=== PATIENT | male | born 1970 | race Caucasian/White ===

== ENCOUNTER 2020-03-14 11:53 | Inpatient (IN) | payer OTHER ==
[2020-03-14] MEDS ORDERED: Sodium Chloride 0.9% 1000 ML 1,000 ML IV SCH (12:45)
[2020-03-14 14:11] LABS: Absolute Neutrophil Ct (ANC) 1.87 (1.4-6.9); BASOPHIL % 0.3 % (0.0-0.4); Basophil (Absolute #) 0.01 (0-0.4); Eosinophil % 1.7 % (0.00-5.0); Eosinophil (Absolute #) 0.05 (0-0.5); Hemoglobin 11.3 gm/dl (12.5-18.0); Lymphocyte (Absolute #) 0.71 (1.0-4.6); Lymphocytes % 23.4 % (24.0-44.0); Mean Corpuscular Hemoglobin 36.8 pg (26-32); Mean Corpuscular Hgb Concent. 36.5 g/dl (32-36); Mean Platelet Volume 10.8 fl (7.5-11.0); Monocyte (Absolute #) 0.39 (0.0-1.3); Monocytes % 12.9 % (0.0-12.0); Neutrophil % 61.7 % (36.0-66.0); Platelet Count 130 K/mm3 (150-450); Red Blood Count 3.07 M/mm3 (4.1-5.6); Red Cell Distribution Width 12.2 % (11.5-14.0)
[2020-03-14 14:13] LABS: ALBUMIN 5.3 g/dL (3.5-5.0); ANION GAP 20.6 MEQ/L (5-15); BILIRUBIN,TOTAL 0.9 mg/dL (0.2-1.3); Calcium 10.5 mg/dL (8.4-10.2); Creatinine 1 1.9 mg/dL (0.66-1.25); Total Protein 8.9 g/dL (6.3-8.2)
[2020-03-14 14:15] LABS: Potassium 5.5 mmol/L (3.5-5.1)
[2020-03-14] MEDS ORDERED: D50W 50 ml Abboject IV ONE ×2 (14:15→14:22)
--- NOTE | 2020-03-14 14:44 | ERPHSYRPT ---
- History of Present Illness Time Seen by Provider: 03/14/20 12:12 Source: patient Exam Limitations: no limitations Patient Subjective Stated Complaint: Pt states "I was called by Dr. Agarwal and told to come to the ER because my sodium was extremely low." Triage Nursing Assessment: Pt presented alert and oriented X 3, skin pwd. Pt ambulates with an upright steady gait, able to speak in clear full sentences. Pt in no apparent respiratory distress. Physician History: 49 years old male with history of diabetes mellitus, chronic kidney disease with sent in ER by primary care after his labs done yesterday at [facility] showed hyponatremia. Patient report having generalized weakness and fatigue going on for quite some time but denies any focal numbness tingling or weakness. Denies any confusion. Denies any chest pain palpitations or shortness of breath. Denies any diuretic intake are excessive water intake. Denies polyuria or polydipsia. Patient was also hypoglycemic on the work-up. Allergies/Adverse Reactions: No Known Drug Allergies Allergy (Verified 03/14/20 16:16) Home Medications: Losartan Potassium 50 mg PO DAILY 03/14/20 [History] Metformin HCl [Metformin ER Gastric] 1,000 mg PO BID 03/14/20 [History] Simvastatin 20 mg PO DAILY 03/14/20 [History] glipiZIDE [Glipizide] 5 mg PO DAILY 03/14/20 [History] Hx Tetanus, Diphtheria Vaccination/Date Given: No Hx Influenza Vaccination/Date Given: No Hx Pneumococcal Vaccination/Date Given: No Immunizations Up to Date: Yes Travel Risk - International Travel Have you traveled outside of the country in past 3 weeks: No - Coronavirus Screening Are you exhibiting any of the following symptoms?: No Close contact with a COVID-19 positive Pt in past 14-21 Days: No - Review of Systems Constitutional: Fatigue, Weakness Eyes: No Symptoms Ears, Nose, & Throat: No Symptoms Respiratory: No Symptoms Cardiac: No Symptoms Abdominal/Gastrointestinal: No Symptoms Genitourinary Symptoms: No Symptoms Musculoskeletal: Myalgias Skin: No Symptoms Neurological: No Symptoms Psychological: No Symptoms Endocrine: No Symptoms Hematologic/Lymphatic: No Symptoms Immunological/Allergic: No Symptoms - Past Medical History Pertinent Past Medical History: Yes Neurological History: No Pertinent History ENT History: No Pertinent History Cardiac History: High Cholesterol, Hypertension Respiratory History: No Pertinent History Endocrine Medical History: Diabetes Type II Musculoskeletal History: No Pertinent History GI Medical History: No Pertinent History History: Renal Disease Psycho-Social History: No Pertinent History Male Reproductive Disorders: No Pertinent History - Past Surgical History Past Surgical History: No - Social History Smoking Status: Never smoker Exposure to second hand smoke: Yes Drug Use: none Patient Lives Alone: No - Nursing Vital Signs Nursing Vital Signs: Initial Vital Signs Temperature 98.2 F 03/14/20 11:59 Pulse Rate 107 H 03/14/20 11:59 Respiratory Rate 20 03/14/20 11:59 Blood Pressure 145/95 03/14/20 11:59 O2 Sat by Pulse Oximetry 100 03/14/20 11:59 Pain Scale Pain Intensity 0 - Physical Exam General Appearance: no apparent distress Eye Exam: PERRL/EOMI, eyes nml inspection Ears, Nose, Throat Exam: normal ENT inspection, TMs normal, pharynx normal Neck Exam: normal inspection, non-tender, supple, full range of motion Respiratory Exam: normal breath sounds, lungs clear Cardiovascular Exam: regular rate/rhythm, normal heart sounds Gastrointestinal/Abdomen Exam: soft, normal bowel sounds, No tenderness Back Exam: normal inspection, normal range of motion Extremity Exam: normal inspection, normal range of motion Neurologic Exam: alert, oriented x 3, cooperative, vice chancellor II-XII nml as tested, normal mood/affect, nml cerebellar function, nml station & gait, sensation nml Skin Exam: normal color SpO2 Interpretation: normal SpO2: 100 O2 Delivery: Room Air - Course Nursing assessment & vital signs reviewed: Yes EKG Interpreted by Me: RATE (80), Sinus Rhythm, NORMAL AXIS, NORMAL INTERVALS (Nonspecific early repolarization) Ordered Tests: Active Orders 24 hr Category Date Time Status Bedrest with BRP/BSC ROUTINE Activity 03/14/20 16:02 Active Up With Assistance ROUTINE Activity 03/14/20 16:02 Active Accucheck Q2H Care 03/14/20 16:02 Active Admit as Inpatient ROUTINE Care 03/14/20 16:02 Active Code Status Order ROUTINE Care 03/14/20 16:02 Active EKG-ER Only STAT Care 03/14/20 12:34 Completed Fall Protocol ROUTINE Care 03/14/20 16:02 Active IV Care Q6H Care 03/14/20 16:02 Active IV Insertion STAT Care 03/14/20 12:34 Completed Neuro Checks Q2H Care 03/14/20 16:02 Active Robson Zak, Apply ROUTINE Care 03/14/20 16:02 Active Weight,Daily 0600 Care 03/14/20 16:02 Active Heart-Healthy Diet Diet 03/14/20 Dinner Active CHEST 1 VIEW (PORTABLE) Stat Exams 03/14/20 14:53 Completed CBC W DIFF AM.LAB Lab 03/15/20 04:00 Ordered CBC W DIFF Stat Lab 03/14/20 13:09 Completed CMP AM.LAB Lab 03/15/20 04:00 Ordered CMP Stat Lab 03/14/20 13:09 Completed CULTURE,URINE Stat Lab 03/14/20 15:10 Received TROPONIN Q3H Lab 03/14/20 15:10 Completed TROPONIN Q3H Lab 03/14/20 18:00 Ordered TROPONIN Q3H Lab 03/14/20 21:00 Ordered UA W/RFX UR CULTURE Stat Lab 03/14/20 15:10 Completed Transfer Order Routine Transfer 03/14/20 Completed Medication Summary Generic Name Dose Route Start Last Admin Trade Name Freq PRN Reason Stop Dose Admin Acetaminophen 650 mg 03/14/20 16:02 Tylenol 325 Mg PO 04/13/20 16:01 Q4H PRN PRN PAIN AND/OR FEVER Famotidine 20 mg 03/14/20 22:00 Pepcid 20 Mg Vial IV 04/13/20 21:59 Q12HT FELIPA Sodium Chloride 1,000 mls @ 200 mls/hr 03/14/20 16:02 Sodium Chloride 0.9% 1000 Ml IV 04/13/20 16:01 .Q5H FELIPA Discontinued Medications Generic Name Dose Route Start Last Admin Trade Name Freq PRN Reason Stop Dose Admin Dextrose Confirm 03/14/20 14:15 D50w 50 Ml Abboject Administered 03/14/20 14:16 Dose 50 ml IV .STK-MED ONE Dextrose 50 ml 03/14/20 14:22 03/14/20 14:23 D50w 50 Ml Abboject IV 03/14/20 14:23 50 ml STAT ONE Administration Sodium Chloride 1,000 mls @ 125 mls/hr 03/14/20 12:45 03/14/20 15:36 Sodium Chloride 0.9% 1000 Ml IV 04/13/20 12:44 125 mls/hr .Q8H FELIPA Administration Sodium Chloride 500 mls @ 30 mls/hr 03/14/20 12:45 Sodium Chloride 3% Hypertonic IV 04/13/20 12:44 .[id number] FELIPA Sodium Chloride Confirm 03/14/20 15:18 Sodium Chloride 0.9% 1000 Ml Administered 03/14/20 15:19 Dose 1,000 mls @ ud .ROUTE .STK-MED ONE Sodium Chloride 500 mls @ 30 mls/hr 03/14/20 15:30 03/14/20 15:36 Sodium Chloride 3% Hypertonic IV 04/13/20 15:29 30 mls/hr .[id number] FELIPA Administration Lab/Rad Data: Laboratory Result Diagrams 03/14/20 13:09 03/14/20 13:09 Laboratory Results 03/14/20 03/14/20 Range/Units 13:09 13:09 WBC 3.0 L (4.0-10.5) K/mm3 RBC 3.07 L (4.1-5.6) M/mm3 Hgb 11.3 L (12.5-18.0) gm/dl Hct 31.0 L (42-50) % MCV 101.0 H (78-100) fl MCH 36.8 H (26-32) pg MCHC 36.5 H (32-36) g/dl RDW 12.2 (11.5-14.0) % Plt Count 130 L (150-450) K/mm3 MPV 10.8 (7.5-11.0) fl Gran % 61.7 (36.0-66.0) % Eos # (Auto) 0.05 (0-0.5) Absolute Lymphs (auto) 0.71 L (1.0-4.6) Absolute Monos (auto) 0.39 (0.0-1.3) Lymphocytes % 23.4 L (24.0-44.0) % Monocytes % 12.9 H (0.0-12.0) % Eosinophils % 1.7 (0.00-5.0) % Basophils % 0.3 (0.0-0.4) % Absolute Granulocytes 1.87 (1.4-6.9) Basophils # 0.01 (0-0.4) Sodium 122 L (137-145) mmol/L Potassium 5.5 H (3.5-5.1) mmol/L Chloride 87 L (98-107) mmol/L Carbon Dioxide 20 L (22-30) mmol/L Anion Gap 20.6 H (5-15) MEQ/L BUN 22 H (9-20) mg/dL Creatinine 1.90 H (0.66-1.25) mg/dL Estimated GFR 40.1 ML/MIN Glucose 49 L* (74-106) mg/dL Calcium 10.5 H (8.4-10.2) mg/dL Total Bilirubin 0.90 (0.2-1.3) mg/dL AST 48 (17-59) U/L ALT 28 (0-50) U/L Alkaline Phosphatase 102 (38-126) U/L Serum Total Protein 8.9 H (6.3-8.2) g/dL Albumin 5.3 H (3.5-5.0) g/dL - Progress Progress: re-examined Progress Note: 49 years old is evaluated for hyponatremia on the work-up done yesterday. I have obtained repeat labs which showed hyponatremia of 122 and potassium of 5.5. He is given 30 mL of 3% hypertonic saline and started on normal saline. His kidney functions are improving mildly when compared from one done yesterday. Chest x-ray negative for any acute finding. Also had hypoglycemia with glucose of 49 and given a ampule of D50. I believe this is secondary to kidney injury with decreased excretion of oral hypoglycemics. We will keep an eye on it. EKG did not show any acute ischemic changes. I have discussed with Dr. Haywood, recommended starting on normal saline at 200/h. Did not recommend using Kayexalate as fluid will take care of mildly elevated potassium. Patient is being admitted. Discussed with : Gonzalez Will see patient in: hospital (full admit) Counseled pt/family regarding: lab results, diagnosis, rad results - Departure Departure Disposition: In-patient Admission Clinical Impression: Hyponatremia, Hyperkalemia, Generalized weakness, Hypoglycemia CKD (chronic kidney disease) Qualifiers: Chronic kidney disease stage: unspecified stage Qualified Code(s): N18.9 - Chronic kidney disease, unspecified Condition: Stable Critical Care Time: Yes Critical Care Time(excluding separately billable procedures): Critical 30-74 mins
--- NOTE | 2020-03-14 15:17 | XRAY ---
Exam: AP upright portable chest film from 03/14/2020. Comparison: None. Indication: 49-year-old male with generalized weakness. Findings: The heart size and contour are normal. The aidee and mediastinal structures appear unremarkable. I see no evidence of abnormal mediastinal or perihilar lymphadenopathy The lungs are adequately inflated. No air space infiltrates, vascular congestion, pneumothorax, or pleural effusion is seen. No acute osseous process is seen. Prominent costochondral calcification is seen at the anterior margin of both first ribs. Impression: 1. No air space infiltrates or other acute cardiopulmonary disease is seen.
[2020-03-14] MEDS ORDERED: Sodium Chloride 0.9% 1000 ML 1,000 ML ONE (15:18)
[2020-03-14 15:24] LABS: Appearance CLOUDY (CLEAR); Bacteria PACKED /HPF (NEGATIVE); Bilirubin NEGATIVE (NEGATIVE); Blood SMALL Ery/ul (0-5); Glucose NEGATIVE (NEGATIVE); Ketones NEGATIVE (NEGATIVE); Leukocyte Esterase LARGE (NEGATIVE); Nitrite NEGATIVE (NEGATIVE); Protein,Urine Dip NEGATIVE (Negative); RBC NONE SEEN /HPF (0-2); Specific Gravity 1.003 (1.005-1.025); Urobilinogen NEGATIVE mg/dL (0-1); WBC >100 /HPF (0-5)
[2020-03-14] MEDS ORDERED: TYLENOL 325 MG PO PRN (16:02)
[2020-03-14] MEDS: Pepcid 20 MG VIAL IV SCH (21:18)
[2020-03-14] MEDS: Sodium Chloride 0.9% 1000 ML 1,000 ML IV SCH ×2 (21:21→21:22)
[2020-03-14] MEDS ORDERED: Glucophage XR 500 MG PO SCH (22:00)
[2020-03-14] MEDS ORDERED: METFORMIN HCL 1000 MG PO SCH (22:00)
[2020-03-15] MEDS: Sodium Chloride 0.9% 1000 ML 1,000 ML IV SCH ×4 (01:56→17:27)
[2020-03-15 05:06] LABS: Absolute Neutrophil Ct (ANC) 1.98 (1.4-6.9); BASOPHIL % 0.3 % (0.0-0.4); Basophil (Absolute #) 0.01 (0-0.4); Eosinophil (Absolute #) 0.07 (0-0.5); Hematocrit 29.1 % (42-50); Hemoglobin 10.5 gm/dl (12.5-18.0); Lymphocyte (Absolute #) 1.17 (1.0-4.6); Lymphocytes % 33.1 % (24.0-44.0); Mean Cell Volume 102.1 fl (78-100); Mean Corpuscular Hemoglobin 36.8 pg (26-32); Mean Corpuscular Hgb Concent. 36.1 g/dl (32-36); Mean Platelet Volume 10.4 fl (7.5-11.0); Monocytes % 8.5 % (0.0-12.0); Neutrophil % 56.1 % (36.0-66.0); Platelet Count 135 K/mm3 (150-450); Red Blood Count 2.85 M/mm3 (4.1-5.6); Red Cell Distribution Width 12.2 % (11.5-14.0); White Blood Count 3.5 K/mm3 (4.0-10.5)
[2020-03-15 05:20] LABS: ALBUMIN 4.5 g/dL (3.5-5.0); BILIRUBIN,TOTAL 0.8 mg/dL (0.2-1.3); Calcium 9.7 mg/dL (8.4-10.2); Creatinine 1 1.7 mg/dL (0.66-1.25); Potassium 5.5 mmol/L (3.5-5.1); Total Protein 7.6 g/dL (6.3-8.2)
--- NOTE | 2020-03-15 09:33 | PCM.HP ---
History of Present Illness - Chief Complaint Chief Complaint: hyponatremia Date: 03/15/20 History of Present Illness: is a 49 year old male. Presented to Er yesterday afternoon after being called by his urologist and told to go to ER because of severely low sodium level. Pt. notes feeling fine and had / has no complaints. Pt. notes he drinks a lot of water. - Review of Systems Constitutional: No Fever, No Chills Eyes: No Symptoms Ears, Nose, & Throat: No Symptoms Respiratory: No Cough, No Short Of Breath Cardiac: No Chest Pain, No Edema, No Syncope Abdominal/Gastrointestinal: No Abdominal Pain, No Nausea, No Vomiting, No Diarrhea Genitourinary Symptoms: No Dysuria Musculoskeletal: No Back Pain, No Neck Pain Skin: No Rash Neurological: No Dizziness, No Focal Weakness, No Sensory Changes Psychological: No Symptoms Endocrine: No Symptoms Hematologic/Lymphatic: No Symptoms Immunological/Allergic: No Symptoms Medications & Allergies Home Medications: Home Medication List Losartan Potassium 50 mg PO DAILY 03/14/20 [History Confirmed 03/14/20] Metformin HCl [Metformin ER Gastric] 1,000 mg PO BID 03/14/20 [History Confirmed 03/14/20] Simvastatin 20 mg PO DAILY 03/14/20 [History Confirmed 03/14/20] glipiZIDE [Glipizide] 5 mg PO DAILY 03/14/20 [History Confirmed 03/14/20] Allergies/Adverse Reactions: Allergies Allergy/AdvReac Type Severity Reaction Status Date / Time No Known Drug Allergies Allergy Verified 03/14/20 16:16 - Past Medical History Past Medical History: Yes Neurological History: No Pertinent History ENT History: No Pertinent History Cardiac History: High Cholesterol, Hypertension Respiratory History: No Pertinent History Endocrine Medical History: Diabetes Type II Musculoskelatal History: No Pertinent History GI Medical History: No Pertinent History History: Renal Disease Pyscho-Social History: No Pertinent History Male Reproductive Disorders: No Pertinent History - Past Surgical History Past Surgical History: No Neuro Surgical History: No Pertinent History Cardiac History: No Pertinent History Respiratory Surgery: No Pertinent History GI Surgical History: No Pertinent History Genitourinary Surgical Hx: No Pertinent History Musculskeletal Surgical Hx: No Pertinent History Male Surgical History: No Pertinent History Other Surgical History: colonoscopy 1 yr ago - Social History Smoking Status: Never smoker Exposure to second hand smoke: No Alcohol: None Drug Use: none - Physical Exam Vital Signs: Vital Signs - 24 hr Temp Pulse Resp BP Pulse Ox 03/15/20 07:32 97.7 F 88 16 138/88 97 03/15/20 04:00 97.7 F 84 16 145/73 98 03/15/20 00:00 98.1 F 88 18 145/93 99 03/14/20 20:00 98.0 F 89 18 144/85 99 03/14/20 16:46 97.8 F 102 H 18 126/68 100 03/14/20 16:42 100 03/14/20 14:54 96 H 18 142/82 96 03/14/20 13:54 100 H 18 136/82 98 03/14/20 11:59 98.2 F 107 H 20 145/95 100 General Appearance: no apparent distress Neurologic Exam: alert, oriented x 3, cooperative Eye Exam: PERRL/EOMI, eyes nml inspection Ears, Nose, Throat Exam: normal ENT inspection, TMs normal, moist mucous membranes Neck Exam: normal inspection, non-tender, supple, full range of motion, No meningismus Respiratory Exam: normal breath sounds, lungs clear, airway intact, No chest tenderness, No respiratory distress Cardiovascular Exam: regular rate/rhythm, normal heart sounds, normal peripheral pulses, No murmur Gastrointestinal/Abdomen Exam: soft, normal bowel sounds, tenderness, No distention, No mass, No guarding Rectal Exam: deferred Back Exam: normal inspection Extremity Exam: normal inspection Skin Exam: normal color, warm, dry, No rash Results - Labs Lab/Micro Results: Accuchecks Date 03/15/20 Date 03/15/20 Date 03/15/2003/15/20 Date 03/14/20 Date 03/14/20 Date 03/14/20 Date 03/14/20 Time 06:48 Time 05:00 Time 03:03 Time 01:00 Time 23:00 Time 21:00 Time 19:00 Time 17:00 Accucheck Value: 100 Accucheck Value: 111 Accucheck Value: 95 Accucheck Value: 101 Accucheck Value: 108 Accucheck Value: 118 Accucheck Value: 99 Lab Results-Last 24 Hours 03/14/20 03/14/20 03/14/20 Range/Units 13:09 13:09 15:10 WBC 3.0 L (4.0-10.5) K/mm3 RBC 3.07 L (4.1-5.6) M/mm3 Hgb 11.3 L (12.5-18.0) gm/dl Hct 31.0 L (42-50) % MCV 101.0 H (78-100) fl MCH 36.8 H (26-32) pg MCHC 36.5 H (32-36) g/dl RDW 12.2 (11.5-14.0) % Plt Count 130 L (150-450) K/mm3 MPV 10.8 (7.5-11.0) fl Gran % 61.7 (36.0-66.0) % Eos # (Auto) 0.05 (0-0.5) Absolute Lymphs (auto) 0.71 L (1.0-4.6) Absolute Monos (auto) 0.39 (0.0-1.3) Lymphocytes % 23.4 L (24.0-44.0) % Monocytes % 12.9 H (0.0-12.0) % Eosinophils % 1.7 (0.00-5.0) % Basophils % 0.3 (0.0-0.4) % Absolute Granulocytes 1.87 (1.4-6.9) Basophils # 0.01 (0-0.4) Sodium 122 L (137-145) mmol/L Potassium 5.5 H (3.5-5.1) mmol/L Chloride 87 L (98-107) mmol/L Carbon Dioxide 20 L (22-30) mmol/L Anion Gap 20.6 H (5-15) MEQ/L BUN 22 H (9-20) mg/dL Creatinine 1.90 H (0.66-1.25) mg/dL Estimated GFR 40.1 ML/MIN Glucose 49 L* (74-106) mg/dL Calcium 10.5 H (8.4-10.2) mg/dL Total Bilirubin 0.90 (0.2-1.3) mg/dL AST 48 (17-59) U/L ALT 28 (0-50) U/L Alkaline Phosphatase 102 (38-126) U/L Troponin I (0.000-0.034) ng/mL Serum Total Protein 8.9 H (6.3-8.2) g/dL Albumin 5.3 H (3.5-5.0) g/dL Urine Color YELLOW (YELLOW) Urine Appearance CLOUDY (CLEAR) Urine pH 6.0 (5-6) Ur Specific Quimby 1.003 (1.005-1.025) Urine Protein NEGATIVE (Negative) Urine Ketones NEGATIVE (NEGATIVE) Urine Blood SMALL (0-5) Tomer/ul Urine Nitrite NEGATIVE (NEGATIVE) Urine Bilirubin NEGATIVE (NEGATIVE) Urine Urobilinogen NEGATIVE (0-1) mg/dL Ur Leukocyte Esterase LARGE (NEGATIVE) Urine WBC (Auto) >100 (0-5) /HPF Urine RBC (Auto) NONE SEEN (0-2) /HPF U Epithel Cells (Auto) NONE (FEW) /HPF Urine Bacteria (Auto) PACKED (NEGATIVE) /HPF Urine Culture Reflexed YES (NO) Urine Glucose NEGATIVE (NEGATIVE) mg/dL 03/14/20 03/14/20 03/15/20 Range/Units 15:10 18:08 04:31 WBC 3.5 L (4.0-10.5) K/mm3 RBC 2.85 L (4.1-5.6) M/mm3 Hgb 10.5 L (12.5-18.0) gm/dl Hct 29.1 L (42-50) % MCV 102.1 H (78-100) fl MCH 36.8 H (26-32) pg MCHC 36.1 H (32-36) g/dl RDW 12.2 (11.5-14.0) % Plt Count 135 L (150-450) K/mm3 MPV 10.4 (7.5-11.0) fl Gran % 56.1 (36.0-66.0) % Eos # (Auto) 0.07 (0-0.5) Absolute Lymphs (auto) 1.17 (1.0-4.6) Absolute Monos (auto) 0.30 (0.0-1.3) Lymphocytes % 33.1 (24.0-44.0) % Monocytes % 8.5 (0.0-12.0) % Eosinophils % 2.0 (0.00-5.0) % Basophils % 0.3 (0.0-0.4) % Absolute Granulocytes 1.98 (1.4-6.9) Basophils # 0.01 (0-0.4) Sodium (137-145) mmol/L Potassium (3.5-5.1) mmol/L Chloride (98-107) mmol/L Carbon Dioxide (22-30) mmol/L Anion Gap (5-15) MEQ/L BUN (9-20) mg/dL Creatinine (0.66-1.25) mg/dL Estimated GFR ML/MIN Glucose (74-106) mg/dL Calcium (8.4-10.2) mg/dL Total Bilirubin (0.2-1.3) mg/dL AST (17-59) U/L ALT (0-50) U/L Alkaline Phosphatase (38-126) U/L Troponin I < 0.012 < 0.012 (0.000-0.034) ng/mL Serum Total Protein (6.3-8.2) g/dL Albumin (3.5-5.0) g/dL Urine Color (YELLOW) Urine Appearance (CLEAR) Urine pH (5-6) Ur Specific Quimby (1.005-1.025) Urine Protein (Negative) Urine Ketones (NEGATIVE) Urine Blood (0-5) Tomer/ul Urine Nitrite (NEGATIVE) Urine Bilirubin (NEGATIVE) Urine Urobilinogen (0-1) mg/dL Ur Leukocyte Esterase (NEGATIVE) Urine WBC (Auto) (0-5) /HPF Urine RBC (Auto) (0-2) /HPF U Epithel Cells (Auto) (FEW) /HPF Urine Bacteria (Auto) (NEGATIVE) /HPF Urine Culture Reflexed (NO) Urine Glucose (NEGATIVE) mg/dL 03/15/ Range/Units 04:31 WBC (4.0-10.5) K/mm3 RBC (4.1-5.6) M/mm3 Hgb (12.5-18.0) gm/dl Hct (42-50) % MCV (78-100) fl MCH (26-32) pg MCHC (32-36) g/dl RDW (11.5-14.0) % Plt Count (150-450) K/mm3 MPV (7.5-11.0) fl Gran % (36.0-66.0) % Eos # (Auto) (0-0.5) Absolute Lymphs (auto) (1.0-4.6) Absolute Monos (auto) (0.0-1.3) Lymphocytes % (24.0-44.0) % Monocytes % (0.0-12.0) % Eosinophils % (0.00-5.0) % Basophils % (0.0-0.4) % Absolute Granulocytes (1.4-6.9) Basophils # (0-0.4) Sodium 128 L (137-145) mmol/L Potassium 5.5 H (3.5-5.1) mmol/L Chloride 97 L (98-107) mmol/L Carbon Dioxide 20 L (22-30) mmol/L Anion Gap 17.0 H (5-15) MEQ/L BUN 18 (9-20) mg/dL Creatinine 1.70 H (0.66-1.25) mg/dL Estimated GFR 45.6 ML/MIN Glucose 97 (74-106) mg/dL Calcium 9.7 (8.4-10.2) mg/dL Total Bilirubin 0.80 (0.2-1.3) mg/dL AST 41 (17-59) U/L ALT 25 (0-50) U/L Alkaline Phosphatase 83 (38-126) U/L Troponin I (0.000-0.034) ng/mL Serum Total Protein 7.6 (6.3-8.2) g/dL Albumin 4.5 (3.5-5.0) g/dL Urine Color (YELLOW) Urine Appearance (CLEAR) Urine pH (5-6) Ur Specific Quimby (1.005-1.025) Urine Protein (Negative) Urine Ketones (NEGATIVE) Urine Blood (0-5) Tomer/ul Urine Nitrite (NEGATIVE) Urine Bilirubin (NEGATIVE) Urine Urobilinogen (0-1) mg/dL Ur Leukocyte Esterase (NEGATIVE) Urine WBC (Auto) (0-5) /HPF Urine RBC (Auto) (0-2) /HPF U Epithel Cells (Auto) (FEW) /HPF Urine Bacteria (Auto) (NEGATIVE) /HPF Urine Culture Reflexed (NO) Urine Glucose (NEGATIVE) mg/dL Microbiology 03/14/20 15:10 Urine Culture - Preliminary Clean Catch Midstream GRAM NEGATIVE ID AND SENSITIVITY PENDING Accuchecks Date 03/15/20 Date 03/15/20 Date 03/15/20 Date 03/15/20 Date 03/14/20 Date 03/14/20 Date 03/14/20 Date 03/14/20 Time 06:48 Time 05:00 Time 03:03 Time 01:00 Time 23:00 Time 21:00 Time 19:00 Time 17:00 Accucheck Value: 100 Accucheck Value: 111 Accucheck Value: 95 Accucheck Value: 101 Accucheck Value: 108 Accucheck Value: 118 Accucheck Value: 99 - Radiology Impressions Radiology Exams & Impressions: Radiology Procedures Category Date Time Status CHEST 1 VIEW (PORTABLE) Stat Exams 03/14/20 14:53 Completed Assessment/Plan (1) UTI (urinary tract infection) Current Visit: Yes Status: Acute Assessment & Plan: Will start on rocephin iv Code(s): N39.0 - URINARY TRACT INFECTION, SITE NOT SPECIFIED (2) Hyperkalemia Current Visit: Yes Status: Acute Assessment & Plan: IVF and hold ARB Code(s): E87.5 - HYPERKALEMIA (3) Hyponatremia Current Visit: Yes Status: Acute Assessment & Plan: limit fluid intake and aggressive normal saline hydration Code(s): E87.1 - HYPO-OSMOLALITY AND HYPONATREMIA
[2020-03-15] MEDS ORDERED: Lasix 20 MG/2 ML IV ONE (09:45)
[2020-03-15] MEDS ORDERED: Cozaar 50 MG PO SCH (10:00)
[2020-03-15] MEDS: Pepcid 20 MG VIAL IV SCH ×2 (10:11→22:19)
[2020-03-15] MEDS: ROCEPHIN 1 Gm-D5w 50 ml Bag** 1 G/50 ML IVPB IV SCH (10:11)
[2020-03-15] MEDS: Glucotrol 5 MG PO SCH (10:11)
[2020-03-15] MEDS ORDERED: ZOCOR 20MG PO SCH (22:00)
[2020-03-16] MEDS: Sodium Chloride 0.9% 1000 ML 1,000 ML IV SCH (03:19)
[2020-03-16 04:13] VITALS: O2SAT 97
[2020-03-16 05:25] LABS: ANION GAP 16.3 MEQ/L (5-15); Creatinine 1 1.55 mg/dL (0.66-1.25); Potassium 4.7 mmol/L (3.5-5.1)
[2020-03-16] MEDS: ROCEPHIN 1 Gm-D5w 50 ml Bag** 1 G/50 ML IVPB IV SCH (10:00)
[2020-03-16] MEDS: Pepcid 20 MG VIAL IV SCH (10:00)
[2020-03-16] MEDS: Glucotrol 5 MG PO SCH (10:02)
[2020-03-16 11:54] VITALS: BP 133/80; PULSE 86
--- NOTE | 2020-03-16 12:17 | PCM.DS ---
Discharge Summary Date of Admission: 03/14/20 15:03 Admitting Physician: DEREK DORADO Primary Care Provider: DARON VITAL Allergies Allergies No Known Drug Allergies Allergy (Verified 03/14/20 16:16) Hospital Summary - Hospital Course Hospital Course: 49 years old male with history of diabetes mellitus, chronic kidney disease with sent in ER by [employer] after his labs done yesterday at [facility] showed hyponatremia. Patient report having generalized weakness and fatigue going on for quite some time but denies any focal numbness tingling or weakness. Denied any confusion chest pain palpitations or shortness of breath. Denies any diuretic intake are excessive water intake. Denies polyuria or polydipsia. Patient was also hypoglycemic on the work-up. Patient was admitted for observation. He was started on normal saline and his labs started to show improvement. Patient was found to have UTI. He does report drinking excessive amounts of water but was unable to quantify. Patient reports living with his sister and that she helps with his meds. Unsure if patient needs home health care to assist with his home meds. He sees Jona Vital RN IMAGING for primary care. Plan for discharge today. Patient will need to get repeat labs including BMP to evaluate kidney function and electrolytes as well. He will be discharged on antibiotic as well. Patient reports that he has dental infection and has an appt with dentist to have his teeth pulled. - Vitals & Intake/Output Vital Signs: Vital Signs Temperature 97.9 F 03/16/20 11:53 Pulse Rate 86 03/16/20 11:53 Respiratory Rate 16 03/16/20 11:53 Blood Pressure 133/80 03/16/20 11:53 O2 Sat by Pulse Oximetry 97 03/16/20 11:53 Intake & Output: Intake & Output 03/14/20 03/15/20 03/16/20 03/17/20 11:59 11:59 11:59 11:59 Intake Total 6028 97 Output Total 3976 3618 Balance 6479 9015 Weight 66.4 kg 66.5 kg 67.1 kg - Lab Result Diagrams: 03/15/20 04:31 03/16/20 04:59 Lab Results-Last 24 Hrs: Accuchecks Date 03/16/20 Date 03/16/20 Date 03/15/20 Time 07:00 Time 21:00 Time 16:30 Accucheck Value: 86 Accucheck Value: 101 Accucheck Value: 82 Lab Results-Last 24 Hours 03/16/20 Range/Units 04:59 Sodium 133 L (137-145) mmol/L Potassium 4.7 (3.5-5.1) mmol/L Chloride 104 (98-107) mmol/L Carbon Dioxide 18 L (22-30) mmol/L Anion Gap 16.3 H (5-15) MEQ/L BUN 14 (9-20) mg/dL Creatinine 1.55 H (0.66-1.25) mg/dL Estimated GFR 50.7 ML/MIN Glucose 86 (74-106) mg/dL Calcium 9.0 (8.4-10.2) mg/dL Micro Results-Entire Visit: Microbiology 03/14/20 15:10 Urine Culture - Final Clean Catch Midstream Klebsiella Oxytoca Accuchecks Date 03/16/20 Date 03/16/20 Date 03/15/20 Time 07:00 Time 21:00 Time 16:30 Accucheck Value: 86 Accucheck Value: 101 Accucheck Value: 82 - Radiology Exams Ordered Rad Exams-Entire Visit: Radiology Procedures Category Date Time Status CHEST 1 VIEW (PORTABLE) Stat Exams 03/14/20 14:53 Completed Discharge Exam General Appearance: no apparent distress Neurologic Exam: alert, other (Patient has difficult speech to understand. He appears to be oriented) Eye Exam: eyes nml inspection, No scleral icterus Ears, Nose, Throat Exam: moist mucous membranes (Poor dentition) Neck Exam: normal inspection Respiratory Exam: normal breath sounds, lungs clear, No chest tenderness, No respiratory distress, No diminished breath sounds, No crackles/rales, No wheez ing Cardiovascular Exam: regular rate/rhythm, normal heart sounds Gastrointestinal/Abdomen Exam: soft, normal bowel sounds, No tenderness, No distention Male Genitalia Exam: deferred Rectal Exam: deferred Back Exam: No CVA tenderness Extremity Exam: No pedal edema, No swelling, No tenderness Skin Exam: normal color, warm, dry, No rash Final Diagnosis/Problem List - Final Discharge Diagnosis/Problem (1) CKD (chronic kidney disease) Current Visit: Yes Status: Acute Assessment & Plan: This is more saleem on ckd. Patient denies any recent illness prior to admission just endorsed feeling fatigued. He was given IV fluids normal saline which improved his kidney function slightly. Will have patient get repeat labs following discharge and have him follow up with primary care provider and nep hrologist Code(s): N18.9 - CHRONIC KIDNEY DISEASE, UNSPECIFIED (2) Generalized weakness Current Visit: Yes Status: Acute Assessment & Plan: Patient was found to have UTI which could explain some of the weakness. Was also found to be hyponatremic and hypoglycemic as well. Patient will go home on antiobiotics for his UTI. His sodium is closer to baseline. His blood sugars are wnl. Code(s): R53.1 - WEAKNESS (3) Hyperkalemia Current Visit: Yes Status: Acute Assessment & Plan: Patient K is wnl. Will get repeat labs as outpatient. Code(s): E87.5 - HYPERKALEMIA (4) Hypoglycemia Current Visit: Yes Status: Acute Assessment & Plan: Patient is on glipizide which can lead to hypoglycemia. Patient may have not been eating his normal amount due to UTI. BS have been closer to normal. Patient may need some more education about low blood sugars and tx for this. Code(s): E16.2 - HYPOGLYCEMIA, UNSPECIFIED (5) Hyponatremia Current Visit: Yes Status: Acute Assessment & Plan: Unsure etiology. Patient does endorse drinking lots of water however he was unable to quantify. Patient will follow up with exceptional children's teacher as outpatient. He will be discharged with plan to get repeat lab as outpatient Code(s): E87.1 - HYPO-OSMOLALITY AND HYPONATREMIA (6) UTI (urinary tract infection) Current Visit: Yes Status: Acute Assessment & Plan: Patient was found to have klebsiella UTI. Will discharge on antiobiotics. Code(s): N39.0 - URINARY TRACT INFECTION, SITE NOT SPECIFIED - Discharge Disposition: Home, Self-Care Condition: Stable Prescriptions: New Ciprofloxacin HCl [Cipro] 500 mg PO DAILY #3 tablet Continue glipiZIDE [Glipizide] 5 mg PO DAILY Simvastatin 20 mg PO DAILY Metformin HCl [Metformin ER Gastric] 1,000 mg PO BID Losartan Potassium 50 mg PO DAILY Additional Instructions: Patient needs to get repeat BMP tomorrow. He needs to complete his antibiotic as well. Follow up with: DARON VITAL NP [Primary Care Provider] - 1 Week
[2020-03-16 14:21] LABS: Absolute Neutrophil Ct (ANC) 2.47 (1.4-6.9); BASOPHIL % 0.2 % (0.0-0.4); Basophil (Absolute #) 0.01 (0-0.4); Eosinophil % 2.2 % (0.00-5.0); Eosinophil (Absolute #) 0.09 (0-0.5); Hematocrit 27.9 % (42-50); Hemoglobin 9.7 gm/dl (12.5-18.0); Lymphocyte (Absolute #) 1.12 (1.0-4.6); Lymphocytes % 27.6 % (24.0-44.0); Mean Cell Volume 105.7 fl (78-100); Mean Corpuscular Hemoglobin 36.7 pg (26-32); Mean Corpuscular Hgb Concent. 34.8 g/dl (32-36); Mean Platelet Volume 9.9 fl (7.5-11.0); Monocyte (Absolute #) 0.37 (0.0-1.3); Monocytes % 9.1 % (0.0-12.0); Neutrophil % 60.9 % (36.0-66.0); Platelet Count 124 K/mm3 (150-450); Red Blood Count 2.64 M/mm3 (4.1-5.6); Red Cell Distribution Width 12.8 % (11.5-14.0); White Blood Count 4.1 K/mm3 (4.0-10.5)
[2020-03-17 06:33] LABS: Sodium, Urine Random <20 mEq/L
[2020-03-17 11:11] LABS: OSMOLALITY URINE 117 mOsm/kg
== END 2020-03-16 14:13 | disposition home or self-care (01) | DRG 683 ==
LOC: ED 11:53 → OBSVTOIN 15:03 → MED SURG 15:03
PROVIDERS: ADMIT Family Medicine; ATTEND Family Medicine
DX: I12.9 Hypertensive chronic kidney disease with stage 1 through stage 4 chronic kidney disease, or unspecified chronic kidney disease (principal); E87.1 Hypo-osmolality and hyponatremia; N39.0 Urinary tract infection, site not specified; E11.22 Type 2 diabetes mellitus with diabetic chronic kidney disease; E11.649 Type 2 diabetes mellitus with hypoglycemia without coma; E78.00 Pure hypercholesterolemia, unspecified; R53.1 Weakness; E87.5 Hyperkalemia; Z79.899 Other long term (current) drug therapy
CPT/HCPCS: 36000; 36415; 71045; 80048; 80053; 81001; 82962; 83935; 84300; 84484; 85025; 87077; 87086; 87186; 93005; 96374; 99284; J0696; J1940; A9270-GY

== ENCOUNTER 2020-03-24 21:01 | Emergency (ER) | payer OTHER ==
[2020-03-24] MEDS ORDERED: Sodium Chloride 0.9% 1000 ML 1,000 ML ONE (21:46)
--- NOTE | 2020-03-24 21:46 | ERPHSYRPT ---
- History of Present Illness Time Seen by Provider: 03/24/20 21:25 Source: patient, family Exam Limitations: no limitations Patient Subjective Stated Complaint: brother states that pt had 4 teeth pulled out today, pt states that he had teeth pulled with sutures placed, brother states that when took pt home he fell and passed out once in his home, pt states that he passed out 2 addition times since brother came to check on him this afternoon, bother states pt was in here 3 weeks ago for low potassium, pt states that he was given local shots for tooth removal, pt states that he hit his head on the wall Triage Nursing Assessment: pt came into the er via wheelchair, pt is axo x3, mumbled speech, swelling present to gums, bleeding present to gums, sutures present to upper and lower jaw, tachycardic, denies any pain Physician History: This is a 49-year-old white male who has a history of diabetes and hypertension as well as chronic kidney disease and presents to the emergency room with near syncopal episode on a couple occasions today. Earlier today, the patient underwent dental extractions x4 by his dental surgeon. Patient was n.p.o. the night prior and this morning. Patient takes losartan, glipizide and simvastatin medication. Patient hit his head when he fell today. The most recent fall was at approximately 430 this afternoon. Patient has no primary cardiac disease. Timing/Duration: today Severity: mild Associated Symptoms: syncope (Near syncope), No shortness of breath, No chest pain Allergies/Adverse Reactions: No Known Drug Allergies Allergy (Verified 03/24/20 21:13) Home Medications: Losartan Potassium 50 mg PO DAILY 03/14/20 [History] Metformin HCl [Metformin ER Gastric] 1,000 mg PO BID 03/14/20 [History] Simvastatin 20 mg PO DAILY 03/14/20 [History] glipiZIDE [Glipizide] 5 mg PO DAILY 03/14/20 [History] Amlodipine Besylate [Norvasc] 10 mg PO DAILY 03/24/20 [History] Amoxicillin 500 mg Cap [Amoxil 500 mg] 500 mg PO TID 03/24/20 [History] Chlorhexidine Gluconate 15 ml MM TID 03/24/20 [History] Hydrocodone/APAP 5-325 Tab^^^ [[place] 5-325 Tablet^^^] 1 tab PO Q6H PRN 03/24/20 [History] Ibuprofen 600 mg PO Q6H PRN 03/24/20 [History] Hx Tetanus, Diphtheria Vaccination/Date Given: No Hx Influenza Vaccination/Date Given: No Hx Pneumococcal Vaccination/Date Given: No Travel Risk - International Travel Have you traveled outside of the country in past 3 weeks: No - Coronavirus Screening Are you exhibiting any of the following symptoms?: No Close contact with a COVID-19 positive Pt in past 14-21 Days: No - Review of Systems Constitutional: No Symptoms Eyes: No Symptoms Ears, Nose, & Throat: No Symptoms Respiratory: No Symptoms Cardiac: Syncope (Near syncope) Abdominal/Gastrointestinal: No Symptoms Genitourinary Symptoms: No Symptoms Musculoskeletal: No Symptoms Skin: No Symptoms Neurological: No Symptoms Psychological: No Symptoms Endocrine: No Symptoms Hematologic/Lymphatic: No Symptoms Immunological/Allergic: No Symptoms All Other Systems: Reviewed and Negative - Past Medical History Pertinent Past Medical History: Yes Neurological History: No Pertinent History ENT History: No Pertinent History Cardiac History: High Cholesterol, Hypertension Respiratory History: No Pertinent History Endocrine Medical History: Diabetes Type II Musculoskeletal History: No Pertinent History GI Medical History: No Pertinent History History: Renal Disease Psycho-Social History: No Pertinent History Male Reproductive Disorders: No Pertinent History - Past Surgical History Past Surgical History: No Neuro Surgical History: No Pertinent History Cardiac: No Pertinent History Respiratory: No Pertinent History Gastrointestinal: No Pertinent History Genitourinary: No Pertinent History Musculoskeletal: No Pertinent History Male Surgical History: No Pertinent History Other Surgical History: colonoscopy 1 yr ago - Social History Smoking Status: Never smoker Exposure to second hand smoke: No Drug Use: none Patient Lives Alone: No - Nursing Vital Signs Nursing Vital Signs: Initial Vital Signs Temperature 97.8 F 03/24/20 21:16 Pulse Rate 119 H 03/24/20 21:16 Respiratory Rate 16 03/24/20 21:16 Blood Pressure 125/64 03/24/20 21:16 O2 Sat by Pulse Oximetry 100 03/24/20 21:16 Pain Scale Pain Intensity 0 - Physical Exam General Appearance: no apparent distress, alert, anxiety Eye Exam: PERRL/EOMI Ears, Nose, Throat Exam: moist mucous membranes ( sites.), other (Dental gingival sutures present with mild ooze from) Neck Exam: normal inspection, non-tender, supple, full range of motion Respiratory Exam: normal breath sounds, lungs clear, airway intact, No chest tenderness, No respiratory distress Cardiovascular Exam: normal peripheral pulses, tachycardia Back Exam: normal inspection, normal range of motion, No CVA tenderness, No vertebral tenderness Extremity Exam: normal inspection, normal range of motion, pelvis stable Neurologic Exam: alert, oriented x 3, cooperative, imaging services director II-XII nml as tested, normal mood/affect, nml cerebellar function, nml station & gait, sensation nml Skin Exam: normal color, warm, dry Lymphatic Exam: No adenopathy SpO2 Interpretation: normal SpO2: 100 O2 Delivery: Room Air - Course Nursing assessment & vital signs reviewed: Yes EKG Interpreted by Me: RATE, Sinus Tach, NORMAL AXIS, NORMAL INTERVALS, NORMAL QRS, Other (Comparison EKG was on March 14, 2020. New finding on today's EKG is that of a heart rate of 117 and therefore sinus tachycardia. No other acute findings present.) Ordered Tests: Active Orders 24 hr Category Date Time Status EKG-ER Only STAT Care 03/24/20 21:41 Active IV Insertion STAT Care 03/24/20 21:40 Active HEAD WITHOUT CONTRAST [CT] Stat Exams 03/24/20 21:41 Taken CBC W DIFF Stat Lab 03/24/20 21:49 Completed CMP Stat Lab 03/24/20 21:49 Completed TROPONIN Q3H Lab 03/24/20 21:49 Completed Medication Summary Discontinued Medications Generic Name Dose Route Start Last Admin Trade Name Freq PRN Reason Stop Dose Admin Sodium Chloride 1,000 mls @ 999 mls/hr 03/24/20 21:40 03/24/20 21:47 Sodium Chloride 0.9% 1000 Ml IV 03/24/20 22:40 999 mls/hr .Q1H1M STA Administration Sodium Chloride Confirm 03/24/20 21:46 Sodium Chloride 0.9% 1000 Ml Administered 03/24/20 21:47 Dose 1,000 mls @ ud .ROUTE .STK-MED ONE Lab/Rad Data: Laboratory Result Diagrams 03/24/20 21:49 03/24/20 21:49 Laboratory Results 03/24/20 03/24/20 03/24/20 Range/Units 21:49 21:49 21:49 WBC 4.1 (4.0-10.5) K/mm3 RBC 2.82 L (4.1-5.6) M/mm3 Hgb 10.3 L (12.5-18.0) gm/dl Hct 28.9 L (42-50) % MCV 102.5 H (78-100) fl MCH 36.5 H (26-32) pg MCHC 35.6 (32-36) g/dl RDW 12.1 (11.5-14.0) % Plt Count 113 L (150-450) K/mm3 MPV 8.9 (7.5-11.0) fl Gran % 88.4 H (36.0-66.0) % Eos # (Auto) 0.01 (0-0.5) Absolute Lymphs (auto) 0.28 L (1.0-4.6) Absolute Monos (auto) 0.18 (0.0-1.3) Lymphocytes % 6.8 L (24.0-44.0) % Monocytes % 4.4 (0.0-12.0) % Eosinophils % 0.2 (0.00-5.0) % Basophils % 0.2 (0.0-0.4) % Absolute Granulocytes 3.64 (1.4-6.9) Basophils # 0.01 (0-0.4) Sodium 125 L (137-145) mmol/L Potassium 5.3 H (3.5-5.1) mmol/L Chloride 91 L (98-107) mmol/L Carbon Dioxide 17 L (22-30) mmol/L Anion Gap 22.3 H (5-15) MEQ/L BUN 29 H (9-20) mg/dL Creatinine 1.86 H (0.66-1.25) mg/dL Estimated GFR 41.1 ML/MIN Glucose 199 H (74-106) mg/dL Calcium 10.1 (8.4-10.2) mg/dL Total Bilirubin 1.20 (0.2-1.3) mg/dL AST 42 (17-59) U/L ALT 30 (0-50) U/L Alkaline Phosphatase 116 (38-126) U/L Troponin I < 0.012 (0.000-0.034) ng/mL Serum Total Protein 8.5 H (6.3-8.2) g/dL Albumin 5.2 H (3.5-5.0) g/dL Slides for Path Review YES - Progress Progress: improved, re-examined Progress Note: 03/24/20 23:11 CAT scan of the head reveals no acute intracranial abnormality. Medical decision making: This patient's labs are slightly out of the normal range. However, they have been like this chronically over the last several weeks. Patient states clinically he feels better. This was after a liter of fluid. Patient's EKG shows no acute findings and his troponin is normal. His CAT scan of his head is also without any acute intracranial abnormality. We will discharge him to home and he will follow-up with his primary care physician tomorrow. 03/24/20 23:20 Patient states that he is feeling better. Patient states he will drink something at home. I will give him another 500 mL of normal saline intravenously. We will walk him in the emergency department to make sure that he is ambulating well. I reviewed the patient's labs with the patient and his family. Counseled pt/family regarding: lab results, diagnosis, need for follow-up - Departure Departure Disposition: Home Clinical Impression: Dehydration, mild Condition: Stable Critical Care Time: No Referrals: DEREK DORADO [Primary Care Provider] - Additional Instructions: Drink plenty of fluids. Call your primary care doctor's office tomorrow, March 25, 2020, to arrange for follow-up appointment. Return to the emergency department if symptoms recur or worsen.
[2020-03-24] MEDS: Sodium Chloride 0.9% 1000 ML 1,000 ML IV STA (21:47)
[2020-03-24 21:51] LABS: Absolute Neutrophil Ct (ANC) 3.64 (1.4-6.9); BASOPHIL % 0.2 % (0.0-0.4); Basophil (Absolute #) 0.01 (0-0.4); Eosinophil % 0.2 % (0.00-5.0); Eosinophil (Absolute #) 0.01 (0-0.5); Hematocrit 28.9 % (42-50); Hemoglobin 10.3 gm/dl (12.5-18.0); Lymphocyte (Absolute #) 0.28 (1.0-4.6); Lymphocytes % 6.8 % (24.0-44.0); Mean Cell Volume 102.5 fl (78-100); Mean Corpuscular Hemoglobin 36.5 pg (26-32); Mean Corpuscular Hgb Concent. 35.6 g/dl (32-36); Mean Platelet Volume 8.9 fl (7.5-11.0); Monocyte (Absolute #) 0.18 (0.0-1.3); Monocytes % 4.4 % (0.0-12.0); Neutrophil % 88.4 % (36.0-66.0); Platelet Count 113 K/mm3 (150-450); Red Blood Count 2.82 M/mm3 (4.1-5.6); Red Cell Distribution Width 12.1 % (11.5-14.0); White Blood Count 4.1 K/mm3 (4.0-10.5)
[2020-03-24 22:01] LABS: ALBUMIN 5.2 g/dL (3.5-5.0); ANION GAP 22.3 MEQ/L (5-15); BILIRUBIN,TOTAL 1.2 mg/dL (0.2-1.3); Calcium 10.1 mg/dL (8.4-10.2); Creatinine 1 1.86 mg/dL (0.66-1.25); Potassium 5.3 mmol/L (3.5-5.1); Total Protein 8.5 g/dL (6.3-8.2)
[2020-03-24 22:06] LABS: Slide Review 1 YES
[2020-03-24] MEDS ORDERED: Sodium Chloride 0.9% 500 ML 500 ML IV ONE (23:24)
[2020-03-24] MEDS: Sodium Chloride 0.9% 500 ML 500 ML IV ONE (23:24)
[2020-03-24 23:33] VITALS: O2SAT 99
[2020-03-25 00:25] VITALS: BP 132/95; PULSE 116
--- NOTE | 2020-03-25 09:00 | XRAY ---
Indication: 3 syncopal episodes with head injury following teeth extraction. Multiple contiguous axial images obtained through the head without contrast. Comparison: None Normal appearing brain parenchyma, ventricles, and bony calvarium. Visualized paranasal sinuses and mastoid air cells are clear. Impression: Normal CT head without contrast exam. Comment: Preliminary interpretation was made by [facility]. No critical discrepancy.
== END 2020-03-25 00:29 | disposition home or self-care (01) ==
LOC: ED 21:01
DX: E86.0 Dehydration (principal)
CPT/HCPCS: 36000; 36415; 70450; 80053; 84484; 85025; 93005; 96360; 96361; 99284

== ENCOUNTER 2020-03-31 09:59 | Emergency (ER) | payer OTHER ==
[2020-03-31 10:41] LABS: Hematocrit 24.8 % (42-50); Hemoglobin 8.6 gm/dl (12.5-18.0); Mean Corpuscular Hemoglobin 36.8 pg (26-32); Mean Corpuscular Hgb Concent. 34.7 g/dl (32-36); Mean Platelet Volume 9.9 fl (7.5-11.0); Platelet Count 127 K/mm3 (150-450); Red Blood Count 2.34 M/mm3 (4.1-5.6); Red Cell Distribution Width 12.7 % (11.5-14.0); White Blood Count 4.2 K/mm3 (4.0-10.5)
--- NOTE | 2020-03-31 10:54 | ERPHSYRPT ---
- History of Present Illness Source: patient Exam Limitations: other (Extremely poor historian) Patient Subjective Stated Complaint: pt to ER by staff, pt passed out by the therapy doors outside. Code kong was called. pt brought into ER. pt states he doesnt know why he came here but drove here from home. Triage Nursing Assessment: pt diaphorectic. A&Ox3. pt shaky. skin pale and damp. Physician History: Pt w syncopal episode outside of hospital. Rapid response was called, and pt was brought into ER. He was diaphoretic upon arrival and could not give a good history. Prior Episodes: single episode today Timing/Duration: sudden Precipitating Factors: unknown Context: standing Loss of Consciousness: unsure Charcter of event(s): collapsed, became unresponsive Allergies/Adverse Reactions: No Known Drug Allergies Allergy (Verified 03/31/20 10:14) Home Medications: Losartan Potassium 50 mg PO DAILY 03/14/20 [History] Metformin HCl [Metformin ER Gastric] 1,000 mg PO BID 03/14/20 [History] Simvastatin 20 mg PO DAILY 03/14/20 [History] glipiZIDE [Glipizide] 5 mg PO DAILY 03/14/20 [History] Amlodipine Besylate [Norvasc] 10 mg PO DAILY 03/24/20 [History] Amoxicillin 500 mg Cap [Amoxil 500 mg] 500 mg PO TID 03/24/20 [History] Chlorhexidine Gluconate 15 ml MM TID 03/24/20 [History] Hydrocodone/APAP 5-325 Tab^^^ [[place] 5-325 Tablet^^^] 1 tab PO Q6H PRN 03/24/20 [History] Ibuprofen 600 mg PO Q6H PRN 03/24/20 [History] Hx Tetanus, Diphtheria Vaccination/Date Given: No Hx Influenza Vaccination/Date Given: No Hx Pneumococcal Vaccination/Date Given: No Travel Risk - International Travel Have you traveled outside of the country in past 3 weeks: No - Coronavirus Screening Are you exhibiting any of the following symptoms?: No Close contact with a COVID-19 positive Pt in past 14-21 Days: No - Past Medical History Pertinent Past Medical History: Yes Neurological History: No Pertinent History ENT History: No Pertinent History Cardiac History: High Cholesterol, Hypertension Respiratory History: No Pertinent History Endocrine Medical History: Diabetes Type II Musculoskeletal History: No Pertinent History GI Medical History: No Pertinent History History: Renal Disease Psycho-Social History: No Pertinent History Male Reproductive Disorders: No Pertinent History - Past Surgical History Past Surgical History: No Neuro Surgical History: No Pertinent History Cardiac: No Pertinent History Respiratory: No Pertinent History Gastrointestinal: No Pertinent History Genitourinary: No Pertinent History Musculoskeletal: No Pertinent History Male Surgical History: No Pertinent History Other Surgical History: colonoscopy 1 yr ago - Social History Smoking Status: Never smoker Exposure to second hand smoke: No Drug Use: none Patient Lives Alone: No Physical Exam - Nursing Vital Signs Nursing Vital Signs: Initial Vital Signs Temperature 97.9 F 03/31/20 10:09 Pulse Rate 101 H 03/31/20 10:09 Respiratory Rate 13 03/31/20 10:09 Blood Pressure 117/75 03/31/20 10:09 O2 Sat by Pulse Oximetry 100 03/31/20 10:09 Pain Scale Pain Intensity 0 - [place] Coma Scale Best Eye Response ([place]): (4) open spontaneously Best Verbal Response ([place]): (5) oriented Best Motor Response ([place]): (6) obeys commands [place] Total: 15 - Physical Exam General Appearance: mild distress (diaphoretic) Eye Exam: bilateral eye: normal inspection, PERRL, EOMI Ears, Nose, Throat Exam: normal ENT inspection, TMs normal, pharynx normal (Recent widespread dental extraction) Neck Exam: normal inspection, non-tender, supple, full range of motion Respiratory: normal breath sounds, lungs clear, airway intact, No respiratory distress Cardiovascular: tachycardia, No murmur, No edema Gastrointestinal: soft, normal bowel sounds, No tenderness, No distention Back Exam: normal inspection, normal range of motion Extremity Exam: normal inspection, normal range of motion, pelvis stable Peripheral Pulses: carotid (R): 2+, carotid (L): 2+ Mental Status: alert, 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 Exam: normal hearing, PERRL Coordination/Gait: normal finger to nose Motor/Sensory: no motor deficit, no sensory deficit, no pronator drift DTR: bicep (R): 2+, bicep (L): 2+, knee (R): 2+, knee (L): 2+ Skin Exam: diaphoresis SpO2 Interpretation: normal SpO2: 100 O2 Delivery: Room Air - Course EKG Interpreted by Me: RATE (NSR/R76/RBBB/Peaked T-waves/Normal Qt-Qtc) - Radiology Exams Chest X-ray Interpretation: Discussed w/ radiologist (Nothing acute) - CT Exams Head CT Interpretation: Discussed w/radiologist (No fx or bleed) Ordered Tests: Active Orders 24 hr Category Date Time Status EKG-ER Only STAT Care 03/31/20 10:23 Completed Seo [Catheter-[place] Seo] STAT Care 03/31/20 12:02 Completed IV Insertion-2nd Peripheral STAT Care 03/31/20 11:40 Completed CHEST 1 VIEW (PORTABLE) Stat Exams 03/31/20 10:23 Completed HEAD WITHOUT CONTRAST [CT] Stat Exams 03/31/20 10:26 Completed Alcohol [ETHYL ALCOHOL] Stat Lab 03/31/20 10:31 Completed BLOOD CULTURE Stat Lab 03/31/20 11:39 Received BMP Stat Lab 03/31/20 12:52 Completed CBC W DIFF Stat Lab 03/31/20 10:23 Completed CMP Stat Lab 03/31/20 10:31 Completed CULTURE,URINE Stat Lab 03/31/20 11:00 Received Lactic Acid Stat Lab 03/31/20 10:32 Completed Lactic Acid Stat Lab 03/31/20 13:02 Completed Manual Differential NC Stat Lab 03/31/20 10:23 Completed Potassium (Lab Test) [Potassium] Stat Lab 03/31/20 11:26 Completed TROPONIN Q3H Lab 03/31/20 10:31 Completed TROPONIN Q3H Lab 03/31/20 13:30 Completed UA W/RFX UR CULTURE Stat Lab 03/31/20 10:58 Completed Urine Triage Profile Stat Lab 03/31/20 10:58 Completed Respiratory Therapy Assessment DAILY RT 03/31/20 11:32 Completed Medication Summary Discontinued Medications Generic Name Dose Route Start Last Admin Trade Name Freq PRN Reason Stop Dose Admin Albuterol Sulfate 2.5 mg 03/31/20 11:24 03/31/20 11:30 Proventil 2.5 Mg/3 Ml Neb IH 03/31/20 11:25 2.5 mg STAT ONE Administration Albuterol Sulfate Confirm 03/31/20 11:28 Proventil 2.5 Mg/3 Ml Neb Administered 03/31/20 11:29 Dose 2.5 mg IH .STK-MED ONE Calcium Chloride 1,000 mg 03/31/20 11:22 03/31/20 12:10 Calcium Chloride 10% 1000 Mg IV 03/31/20 11:23 1,000 mg STAT ONE Administration Calcium Chloride Confirm 03/31/20 12:06 Calcium Chloride 10% 1000 Mg Administered 03/31/20 12:07 Dose 1,000 mg .ROUTE .STK-MED ONE Dextrose 25 ml 03/31/20 11:56 03/31/20 12:09 D50w 50 Ml Abboject IV 03/31/20 11:57 25 ml STAT ONE Administration Dextrose Confirm 03/31/20 12:08 D50w 50 Ml Abboject Administered 03/31/20 12:09 Dose 50 ml IV .STK-MED ONE Sodium Chloride 1,000 mls @ 999 mls/hr 03/31/20 11:32 03/31/20 12:44 Sodium Chloride 0.9% 1000 Ml IV 03/31/20 12:32 Infused .Q1H1M STA Infusion Sodium Chloride Confirm 03/31/20 11:41 Sodium Chloride 0.9% 1000 Ml Administered 03/31/20 11:42 Dose 1,000 mls @ ud .ROUTE .STK-MED ONE Sodium Chloride 1,000 mls @ 999 mls/hr 03/31/20 12:43 03/31/20 12:45 Sodium Chloride 0.9% 1000 Ml IV 03/31/20 13:43 999 mls/hr .Q1H1M STA Administration Sodium Chloride Confirm 03/31/20 12:44 Sodium Chloride 0.9% 1000 Ml Administered 03/31/20 12:45 Dose 1,000 mls @ ud .ROUTE .STK-MED ONE Ceftriaxone Sodium/Dextrose 1 g in 50 mls @ 100 mls/hr 03/31/20 13:20 03/31/20 13:34 Rocephin 1 Gm-D5w 50 Ml Bag IV 03/31/20 13:49 100 ml/hr STAT STA 100 mls/hr Administration Ceftriaxone Sodium/Dextrose Confirm 03/31/20 13:33 Rocephin 1 Gm-D5w 50 Ml Bag Administered 03/31/20 13:34 Dose 1 g in 50 mls @ ud IV .STK-MED ONE Insulin Human Regular 10 unit 03/31/20 11:55 03/31/20 12:10 Humulin R IV 03/31/20 11:56 10 unit STAT ONE Administration Insulin Human Regular Confirm 03/31/20 12:08 Humulin R Administered 03/31/20 12:09 Dose 10 unit .ROUTE .STK-MED ONE Sodium Bicarbonate 50 meq 03/31/20 11:21 03/31/20 12:10 Sodium Bicarbonate 50 Meq/50 Ml Abboject IV 03/31/20 11:22 50 meq STAT ONE Administration Sodium Bicarbonate 50 meq 03/31/20 11:22 03/31/20 12:10 Sodium Bicarbonate 50 Meq/50 Ml Abboject IV 03/31/20 11:23 50 meq STAT ONE Administration Sodium Bicarbonate Confirm 03/31/20 12:08 Sodium Bicarbonate 50 Meq/50 Ml Abboject Administered 03/31/20 12:09 Dose 100 meq IV .STK-MED ONE Lab/Rad Data: Laboratory Result Diagrams 03/31/20 10:23 03/31/20 12:52 Laboratory Results 03/31/20 03/31/20 03/31/20 Range/Units 13:30 13:02 12:52 WBC (4.0-10.5) K/mm3 RBC (4.1-5.6) M/mm3 Hgb (12.5-18.0) gm/dl Hct (42-50) % MCV (78-100) fl MCH (26-32) pg MCHC (32-36) g/dl RDW (11.5-14.0) % Plt Count (150-450) K/mm3 MPV (7.5-11.0) fl Sodium 127 L (137-145) mmol/L Potassium 5.6 H D (3.5-5.1) mmol/L Chloride 98 (98-107) mmol/L Carbon Dioxide 17 L (22-30) mmol/L Anion Gap 17.8 H (5-15) MEQ/L BUN 55 H (9-20) mg/dL Creatinine 3.72 H (0.66-1.25) mg/dL Estimated GFR 18.5 ML/MIN Glucose 145 H (74-106) mg/dL Lactic Acid 2.9 H (0.4-2.0) Calcium 9.7 (8.4-10.2) mg/dL Total Bilirubin (0.2-1.3) mg/dL AST (17-59) U/L ALT (0-50) U/L Alkaline Phosphatase (38-126) U/L Troponin I < 0.012 (0.000-0.034) ng/mL Serum Total Protein (6.3-8.2) g/dL Albumin (3.5-5.0) g/dL Urine Color (YELLOW) Urine Appearance (CLEAR) Urine pH (5-6) Ur Specific [place] (1.005-1.025) Urine Protein (Negative) Urine Ketones (NEGATIVE) Urine Blood (0-5) Tomer/ul Urine Nitrite (NEGATIVE) Urine Bilirubin (NEGATIVE) Urine Urobilinogen (0-1) mg/dL Ur Leukocyte Esterase (NEGATIVE) Urine WBC (Auto) (0-5) /HPF Urine RBC (Auto) (0-2) /HPF U Epithel Cells (Auto) (FEW) /HPF Urine Bacteria (Auto) (NEGATIVE) /HPF Urine Mucus (Auto) (NEGATIVE) /HPF Urine Culture Reflexed (NO) Urine Glucose (NEGATIVE) mg/dL Urine Opiates Level (NEGATIVE) Ur Methadone (NEGATIVE) Urine Barbiturates (NEGATIVE) Ur Phencyclidine (PCP) (NEGATIVE) Urine Amphetamine (NEGATIVE) U Benzodiazepine Level (NEGATIVE) Urine Cocaine (NEGATIVE) Urine Marijuana (THC) (NEGATIVE) Ethyl Alcohol (0-10) mg/dL 03/31/20 03/31/20 03/31/20 Range/Units 11:26 10:58 10:58 WBC (4.0-10.5) K/mm3 RBC (4.1-5.6) M/mm3 Hgb (12.5-18.0) gm/dl Hct (42-50) % MCV (78-100) fl MCH (26-32) pg MCHC (32-36) g/dl RDW (11.5-14.0) % Plt Count (150-450) K/mm3 MPV (7.5-11.0) fl Sodium (137-145) mmol/L Potassium 8.1 H* (3.5-5.1) mmol/L Chloride (98-107) mmol/L Carbon Dioxide (22-30) mmol/L Anion Gap (5-15) MEQ/L BUN (9-20) mg/dL Creatinine (0.66-1.25) mg/dL Estimated GFR ML/MIN Glucose (74-106) mg/dL Lactic Acid (0.4-2.0) Calcium (8.4-10.2) mg/dL Total Bilirubin (0.2-1.3) mg/dL AST (17-59) U/L ALT (0-50) U/L Alkaline Phosphatase (38-126) U/L Troponin I (0.000-0.034) ng/mL Serum Total Protein (6.3-8.2) g/dL Albumin (3.5-5.0) g/dL Urine Color YELLOW (YELLOW) Urine Appearance SLIGHTLY CLOUDY (CLEAR) Urine pH 5.0 (5-6) Ur Specific [place] 1.009 (1.005-1.025) Urine Protein 30 (Negative) Urine Ketones NEGATIVE (NEGATIVE) Urine Blood NEGATIVE (0-5) Tomer/ul Urine Nitrite NEGATIVE (NEGATIVE) Urine Bilirubin NEGATIVE (NEGATIVE) Urine Urobilinogen NEGATIVE (0-1) mg/dL Ur Leukocyte Esterase NEGATIVE (NEGATIVE) Urine WBC (Auto) 6-10 (0-5) /HPF Urine RBC (Auto) 3-5 (0-2) /HPF U Epithel Cells (Auto) RARE (FEW) /HPF Urine Bacteria (Auto) NONE (NEGATIVE) /HPF Urine Mucus (Auto) SLIGHT (NEGATIVE) /HPF Urine Culture Reflexed ORDERED SEPARATELY (NO) Urine Glucose NEGATIVE (NEGATIVE) mg/dL Urine Opiates Level POSITIVE (NEGATIVE) Ur Methadone NEGATIVE (NEGATIVE) Urine Barbiturates NEGATIVE (NEGATIVE) Ur Phencyclidine (PCP) NEGATIVE (NEGATIVE) Urine Amphetamine NEGATIVE (NEGATIVE) U Benzodiazepine Level NEGATIVE (NEGATIVE) Urine Cocaine NEGATIVE (NEGATIVE) Urine Marijuana (THC) NEGATIVE (NEGATIVE) Ethyl Alcohol (0-10) mg/dL 03/31/20 03/31/20 03/31/20 Range/Units 10:32 10:31 10:31 WBC (4.0-10.5) K/mm3 RBC (4.1-5.6) M/mm3 Hgb (12.5-18.0) gm/dl Hct (42-50) % MCV (78-100) fl MCH (26-32) pg MCHC (32-36) g/dl RDW (11.5-14.0) % Plt Count (150-450) K/mm3 MPV (7.5-11.0) fl Sodium (137-145) mmol/L Potassium (3.5-5.1) mmol/L Chloride (98-107) mmol/L Carbon Dioxide (22-30) mmol/L Anion Gap (5-15) MEQ/L BUN (9-20) mg/dL Creatinine (0.66-1.25) mg/dL Estimated GFR ML/MIN Glucose (74-106) mg/dL Lactic Acid 3.9 H (0.4-2.0) Calcium (8.4-10.2) mg/dL Total Bilirubin (0.2-1.3) mg/dL AST (17-59) U/L ALT (0-50) U/L Alkaline Phosphatase (38-126) U/L Troponin I < 0.012 (0.000-0.034) ng/mL Serum Total Protein (6.3-8.2) g/dL Albumin (3.5-5.0) g/dL Urine Color (YELLOW) Urine Appearance (CLEAR) Urine pH (5-6) Ur Specific [place] (1.005-1.025) Urine Protein (Negative) Urine Ketones (NEGATIVE) Urine Blood (0-5) Tomer/ul Urine Nitrite (NEGATIVE) Urine Bilirubin (NEGATIVE) Urine Urobilinogen (0-1) mg/dL Ur Leukocyte Esterase (NEGATIVE) Urine WBC (Auto) (0-5) /HPF Urine RBC (Auto) (0-2) /HPF U Epithel Cells (Auto) (FEW) /HPF Urine Bacteria (Auto) (NEGATIVE) /HPF Urine Mucus (Auto) (NEGATIVE) /HPF Urine Culture Reflexed (NO) Urine Glucose (NEGATIVE) mg/dL Urine Opiates Level (NEGATIVE) Ur Methadone (NEGATIVE) Urine Barbiturates (NEGATIVE) Ur Phencyclidine (PCP) (NEGATIVE) Urine Amphetamine (NEGATIVE) U Benzodiazepine Level (NEGATIVE) Urine Cocaine (NEGATIVE) Urine Marijuana (THC) (NEGATIVE) Ethyl Alcohol < 10 (0-10) mg/dL 03/31/20 03/31/20 Range/Units 10:31 10:23 WBC 4.2 (4.0-10.5) K/mm3 RBC 2.34 L (4.1-5.6) M/mm3 Hgb 8.6 L (12.5-18.0) gm/dl Hct 24.8 L (42-50) % MCV 106.0 H (78-100) fl MCH 36.8 H (26-32) pg MCHC 34.7 (32-36) g/dl RDW 12.7 (11.5-14.0) % Plt Count 127 L (150-450) K/mm3 MPV 9.9 (7.5-11.0) fl Sodium 124 L (137-145) mmol/L Potassium 7.2 H* (3.5-5.1) mmol/L Chloride 93 L (98-107) mmol/L Carbon Dioxide 13 L* (22-30) mmol/L Anion Gap 25.0 H (5-15) MEQ/L BUN 58 H (9-20) mg/dL Creatinine 4.58 H (0.66-1.25) mg/dL Estimated GFR 14.5 ML/MIN Glucose 142 H (74-106) mg/dL Lactic Acid (0.4-2.0) Calcium 9.2 (8.4-10.2) mg/dL Total Bilirubin 0.90 (0.2-1.3) mg/dL AST 47 (17-59) U/L ALT 27 (0-50) U/L Alkaline Phosphatase 135 H (38-126) U/L Troponin I (0.000-0.034) ng/mL Serum Total Protein 7.9 (6.3-8.2) g/dL Albumin 4.5 (3.5-5.0) g/dL Urine Color (YELLOW) Urine Appearance (CLEAR) Urine pH (5-6) Ur Specific [place] (1.005-1.025) Urine Protein (Negative) Urine Ketones (NEGATIVE) Urine Blood (0-5) Tomer/ul Urine Nitrite (NEGATIVE) Urine Bilirubin (NEGATIVE) Urine Urobilinogen (0-1) mg/dL Ur Leukocyte Esterase (NEGATIVE) Urine WBC (Auto) (0-5) /HPF Urine RBC (Auto) (0-2) /HPF U Epithel Cells (Auto) (FEW) /HPF Urine Bacteria (Auto) (NEGATIVE) /HPF Urine Mucus (Auto) (NEGATIVE) /HPF Urine Culture Reflexed (NO) Urine Glucose (NEGATIVE) mg/dL Urine Opiates Level (NEGATIVE) Ur Methadone (NEGATIVE) Urine Barbiturates (NEGATIVE) Ur Phencyclidine (PCP) (NEGATIVE) Urine Amphetamine (NEGATIVE) U Benzodiazepine Level (NEGATIVE) Urine Cocaine (NEGATIVE) Urine Marijuana (THC) (NEGATIVE) Ethyl Alcohol (0-10) mg/dL - Progress Progress Note: 03/31/20 12:[address] Najera at [facility] for ELAYNE/Hyperkalemia/Possible sepsis 03/31/20 13:01 Initial K 7.2, so 2amps NaHCO3 ordered/1amp D50, 10units SQ InsulinR IV given/1amp CaCl given//albuterol neb tx given. 03/31/20 13:02 03/31/20 13:31 Pt received 2L NS bolus in ER. - Departure Departure Disposition: Transfer Clinical Impression: Hyperkalemia, Acute kidney injury, Sepsis associated hypotension Condition: Stable Critical Care Time: Yes Critical Care Time(excluding separately billable procedures): Critical 30-74 mins Referrals: DEREK DORADO [Primary Care Provider] -
[2020-03-31 11:09] LABS: ALBUMIN 4.5 g/dL (3.5-5.0); BILIRUBIN,TOTAL 0.9 mg/dL (0.2-1.3); Calcium 9.2 mg/dL (8.4-10.2); Creatinine 1 4.58 mg/dL (0.66-1.25); Total Protein 7.9 g/dL (6.3-8.2)
[2020-03-31 11:19] LABS: Potassium 7.2 mmol/L (3.5-5.1)
--- NOTE | 2020-03-31 11:19 | XRAY ---
Exam: AP upright portable chest film from 03/31/2020. Comparison: AP upright portable chest film from 03/14/2020. Indication: Auscultation of the lungs reveals rales at right lung base, syncope Findings: The heart size and contour are normal. The aidee and mediastinal structures appear unremarkable. The lungs are well expanded. No airspace infiltrates, vascular congestion, pneumothorax, or pleural fluid is seen. No acute osseous abnormality is seen. Impression: 1. No infiltrates to suggest pneumonia or other acute cardiopulmonary disease is seen. The findings are similar to 03/14/2020.
[2020-03-31] MEDS ORDERED: SODIUM BICARBONATE 50 MEQ/50 ML ABBOJECT IV ONE ×3 (11:21→12:08)
[2020-03-31] MEDS ORDERED: CALCIUM CHLORIDE 10% 1000 MG IV ONE (11:22)
[2020-03-31] MEDS ORDERED: PROVENTIL 2.5 MG/3 ML NEB IH ONE ×2 (11:24→11:28)
[2020-03-31 11:29] LABS: Amphetamine,Urine NEGATIVE (NEGATIVE); Barbiturate,Urine NEGATIVE (NEGATIVE); Benzodiazepine,Urine NEGATIVE (NEGATIVE); Cocaine,Urine NEGATIVE (NEGATIVE); Methadone,Urine NEGATIVE (NEGATIVE); Opiate,Urine POSITIVE (NEGATIVE); PCP,Urine NEGATIVE (NEGATIVE); THC,Urine NEGATIVE (NEGATIVE)
[2020-03-31] MEDS ORDERED: Sodium Chloride 0.9% 1000 ML 1,000 ML IV STA ×2 (11:32→12:43)
[2020-03-31] MEDS ORDERED: Sodium Chloride 0.9% 1000 ML 1,000 ML ONE ×2 (11:41→12:44)
[2020-03-31] MEDS ORDERED: HUMULIN R IV ONE (11:55)
[2020-03-31] MEDS ORDERED: D50W 50 ml Abboject IV ONE ×2 (11:56→12:08)
--- NOTE | 2020-03-31 12:04 | XRAY ---
Exam: CT of the head without IV contrast from 03/31/2020. CTDI: 52.07 mGy Comparison: CT of the head without IV contrast from 03/24/2020. Indication: Syncopal episode, patient does not know whether he hit his head. Technique: Non-IV Contrast axial images were obtained through the brain. Reconstructed coronal and sagittal images were created and reviewed. Findings: The ventricles appear of unremarkable size and configuration. No focal mass effect or midline shift is seen. The patient's head is slightly tilted in the CT gantry. No acute intracranial bleed or abnormal extra-axial fluid collection is seen. The bagley matter-white matter junctions appear unremarkable. No low attenuation cortical infarct is seen. The cortical sulci and basilar cisterns appear unremarkable. The calvarium of the skull appears intact without evidence of fracture. There is a paucity of mastoid air cells, particularly on the right. No mastoid effusion is seen. The middle ear cavities appear unremarkable. There appears to be some cerumen within the right external auditory canal. The visualized paranasal sinuses are clear. Impression: 1. I see no acute intracranial bleed or other acute intracranial process, no change from 03/24/2020. 2. No skull fracture is seen. I see no evidence of significant scalp hematoma.
[2020-03-31] MEDS ORDERED: CALCIUM CHLORIDE 10% 1000 MG ONE (12:06)
[2020-03-31 12:08] LABS: Appearance SLIGHTLY CLOUDY (CLEAR); Bilirubin NEGATIVE (NEGATIVE); Blood NEGATIVE Ery/ul (0-5); Epithelial Cells RARE /HPF (FEW); Glucose NEGATIVE (NEGATIVE); Ketones NEGATIVE (NEGATIVE); Leukocyte Esterase NEGATIVE (NEGATIVE); Mucus SLIGHT /HPF (NEGATIVE); Nitrite NEGATIVE (NEGATIVE); Protein,Urine Dip 30 (Negative); Specific Gravity 1.009 (1.005-1.025); Urobilinogen NEGATIVE mg/dL (0-1)
[2020-03-31] MEDS ORDERED: HUMULIN R ONE (12:08)
[2020-03-31 13:20] VITALS: BP 111/69; PULSE 134
[2020-03-31] MEDS ORDERED: ROCEPHIN 1 Gm-D5w 50 ml Bag** 1 G/50 ML IVPB IV STA (13:20)
[2020-03-31 13:32] VITALS: O2SAT 100
[2020-03-31] MEDS ORDERED: ROCEPHIN 1 Gm-D5w 50 ml Bag** 1 G/50 ML IVPB IV ONE (13:33)
[2020-03-31 13:40] LABS: ANION GAP 17.8 MEQ/L (5-15); Calcium 9.7 mg/dL (8.4-10.2); Creatinine 1 3.72 mg/dL (0.66-1.25); Potassium 5.6 mmol/L (3.5-5.1)
[2020-03-31 20:41] LABS: BAND 1 % (0.0-2.0); Lymphocytes 23 % (24-44); Monocyte 1 % (0.0-12.0); Neutrophils 75 % (36.-66.); Platelet Estimate DECREASED (NORMAL); Total Cells Counted 100
[2020-03-31 22:06] LABS: Absolute Neutrophil Ct (ANC) 3.16 (1.4-6.9)
== END 2020-03-31 13:45 | disposition short-term general hospital (02) ==
LOC: ED 09:59
DX: E87.5 Hyperkalemia (principal); N17.9 Acute kidney failure, unspecified; A41.9 Sepsis, unspecified organism; I95.9 Hypotension, unspecified
CPT/HCPCS: 36000; 51702; 70450; 80048; 80053; 80307; 81001; 82962; 83605; 84132; 84484; 85025; 87040; 87086; 93005; 94640; 96360; 96365; 96374; 96375; 96376; 99291; G0480; 36415; 71045; 99285; J0696; J1815; J7609; A9270-GY